=== PATIENT | female | born 1995 | race American Indian/Alaskan Native ===

== ENCOUNTER 2020-07-30 20:21 | Outpatient (CLI) | payer OTHER ==
[2020-07-30 22:04] VITALS: BP 122/76
--- NOTE | 2020-07-30 22:41 | Ultrasound Report ---
ULTRASOUND OBSTETRIC LIMITED INDICATION / CLINICAL INFORMATION: determine cervical dilation with cerclage. Clinical Gestational Age (GA): 24.5 weeks.days COMPARISON: None available. FINDINGS: HEART RATE (beats per minute): 152 AMNIOTIC FLUID: Subjectively normal. PRESENTATION: Breech. ADDITIONAL FINDINGS: Cervical length is 3.1 cm. There is slight funneling measuring approximately 5 m m in transverse diameter. The cervix itself appears closed. IMPRESSION: 1. Breech presentation with slight funneling of the cervix, as above. Signer Name: Deepak Palmer MD Signed: 07/30/2020 10:36 PM Workstation Name: [id number]
== END 2020-07-30 22:12 | disposition home or self-care (01) ==
LOC: TRG 20:21 → APU 20:21 → TRG 22:12
DX: Z34.92 Encounter for supervision of normal pregnancy, unspecified, second trimester (principal); Z3A.24 24 weeks gestation of pregnancy
CPT/HCPCS: 59025; 76815

== ENCOUNTER 2020-10-30 17:25 | Inpatient (IN) | payer OTHER ==
[2020-10-30] MEDS ORDERED: LACTATED RINGERS 1,000 ML IV ONE (19:07)
[2020-10-30] MEDS ORDERED: NALOXONE 2 MG/2 ML INJ IV PRN (19:31)
[2020-10-30] MEDS ORDERED: ePHEDrine SULFATE 50 MG/1 ML INJ IV PRN (19:31)
[2020-10-30 19:38] LABS: Hematocrit 41.6 % (30.3-42.9); Hemoglobin 14.2 gm/dl (10.1-14.3); Mean Corpuscular HGB Conc 34 % (30-34); Mean Corpuscular Volume 88 fl (79-97); Platelet Count 240 K/mm3 (140-440); Red Blood Count 4.73 M/mm3 (3.65-5.03); Red Cell Distribution Width 14.5 % (13.2-15.2)
--- NOTE | 2020-10-30 19:50 | History and Physical Report ---
History of Present Illness Date of examination: 10/30/20 Date of admission: 10/30/20 18:07 Chief complaint: labor at 38 weeks. History of present illness: Patient is a 25-year-old single black female 2 para 0-1-0-0 1 who has a history of delivery and 2020 baby weighed 1 pound 7 ounces born by events alive. 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 The rest of her genetic screening is negative. Glucose screen was abnormal. Gonorrhea and Chlamydia tests were negative. Patient had her cerclage a few days ago local probiotic at [facility]. She presented being 6 to 7 cm dilated and active labor tonight. By her dates she is 38 weeks and the cervix is 67 cm dilated. An expectant vaginal delivery. Past History Past Medical History: other (factor 9 def,,) Past Surgical History: other (cerclage) Family/Genetic History: none Social history: single - Obstetrical History Expected Date of Delivery: 11/14/20 Actual Gestation: 37 Week(s) 6 Day(s) : 2 Para: 1 Hx # Term Pregnancies: 0 Number of Pregnancies: 1 Spontaneous Abortions: 0 Induced : 0 Number of Living Children: 1 Medications and Allergies Allergies Allergy/AdvReac Type Severity Reaction Status Date / Time No Known Allergies Allergy Verified 10/30/20 18:07 Home Medications Medication Instructions Recorded Confirmed Last Taken Type Pnv,Calcium 72/Iron/Folic Acid 1 tab PO DAILY 07/30/20 07/30/20 07/30/20 History [Preplus Ca-Fe 27 mg-FA 1 mg Tb] 0700 Active Meds: Active Medications Ephedrine Sulfate (Ephedrine Sulfate 50 Mg/1 Ml Inj) 10 mg IV Q2M PRN PRN Reason: Hypotension Lactated Ringer's (Lactated Ringers) 1,000 mls @ 999 mls/hr IV BOLUS ONE Stop: 10/30/20 20:07 Last Admin: 10/30/20 18:39 Dose: 999 mls/hr Documented by: Fentanyl/Bupivacaine/Sodium Chlor (Fentanyl-Bupiv 2 Mcg/Ml-0.125%) 200 mcg in 100 mls @ 12 mls/hr EPIDURAL TITR HERNIETTA; Protocol Naloxone HCl (Naloxone 2 Mg/2 Ml Inj) 0.2 mg IV Q5M PRN PRN Reason: Respiratory sedation Review of Systems All systems: negative - Vital Signs Vital signs: Vital Signs Temp 98.2 F 10/30/20 18:11 Temp Pulse Resp BP Pulse Ox 98.2 F 101 H 122/72 100 10/30/20 18:11 10/30/20 19:42 10/30/20 19:31 10/30/20 19:42 - Physical Exam Breasts: Positive: normal Cardiovascular: Regular rate, Normal S1, Normal S2 Abdomen: Positive: normal appearance, soft, normal bowel sounds. Negative: distention, tenderness Vulva: both: normal Vagina: Positive: normal moisture. Negative: discharge Cervix: Positive: other (6-7 cms). Negative: lesion, discharge Uterus: Positive: normal size, enlarged (38 wks size), normal contour Adnexa: both: normal Anus/Rectum: Positive: normal perianal skin, heme negative. Negative: rectal mass, hemorrhoids Extremities: Deep Tendon Reflex Grade: Normal +2 - Obstetrical FHR: category 1 Uterine Contraction Monitor Mode: External Cervical Dilatation: 7 Cervical Effacement Percentage: 70 station: -3 Uterine Contraction Frequency (min): q5min Uterine Contraction Pattern: Regular Results Result Diagrams: 10/30/20 18:40 Abnormal lab results 10/30/20 Range/Units 18:40 WBC 15.9 H (4.5-11.0) K/mm3 All other labs normal. Assessment and Plan expectant vag delivery at 38 weeks.
[2020-10-30] MEDS ORDERED: fentaNYL-BUPIV 2 MCG/ML-0.125% 200 MCG/100 ML BAG EPIDURAL SCH (20:00)
[2020-10-30] MEDS ORDERED: LIDOCAINE (2%) 20 MG/1 ML VIAL 20 ML MDV INFILTRATI ONE (20:06)
[2020-10-30] MEDS ORDERED: MINERAL OIL 30 ML ORAL LIQD ONE (20:06)
[2020-10-30] MEDS ORDERED: fentaNYL 100 MCG/2 ML INJ IV ONE (20:08)
[2020-10-30] MEDS ORDERED: BICITRA ORAL LIQD 30ML PO ONE (22:38)
--- NOTE | 2020-10-30 22:40 | Anesthesia Day of Surgery ---
Anesthesia Day of Surgery - Day of Surgery Patient Examined: Yes Patient H&P Reviewed: Yes Patient is NPO: Yes Beta Blockers: No Cardiac Clearance: No Pulmonary Clearance: No Zeeshan's Test: N/A
[2020-10-30] MEDS ORDERED: METOCLOPRAMIDE 10 MG/2 ML INJ ONE (22:42)
[2020-10-30] MEDS ORDERED: FAMOTIDINE 20 MG/2 ML INJ IV ONE (22:42)
[2020-10-30] MEDS ORDERED: ceFAZolin/Water 2 GM/20 ML 2 GM/20 ML SYRINGE IV ONE (22:43)
[2020-10-30] MEDS ORDERED: OXYTOCIN DRIP 30,000 MILLIUNITS/500 ML BAG IV ONE (22:43)
[2020-10-30] MEDS ORDERED: NALOXONE 0.4 MG/1 ML INJ IV PRN (22:45)
[2020-10-30] MEDS ORDERED: HYDROmorphone 1 MG/1 ML INJ IV PRN ×2 (22:45)
[2020-10-30] MEDS ORDERED: ONDANSETRON 4 MG/2 ML INJ IV PRN (22:45)
--- NOTE | 2020-10-30 22:45 | Anesthesia Consultation ---
Anesthesia Consult and Med Hx Date of service: 10/30/20 - Airway Anesthetic Teeth Evaluation: Poor ROM Head & Neck: Adequate Mental/Hyoid Distance: Adequate Mallampati Class: Class II Intubation Access Assessment: Probably Good - Pulmonary Exam CTA: Yes - Cardiac Exam Cardiac Exam: RRR - Pre-Operative Health Status ASA Pre-Surgery Classification: ASA3 Proposed Anesthetic Plan: General - Pre-Anesthesia Comment Pre-Anesthesia Comments: cerclage, No anesthesia complications - Pulmonary Hx Smoking: No Hx Asthma: No Hx Respiratory Symptoms: No SOB: No COPD: No Hx Pneumonia: No Hx Sleep Apnea: No - Cardiovascular System Hx Hypertension: No Hx Coronary Artery Disease: No Hx Heart Attack/AMI: No Hx Angina: No Hx Percutaneous Transluminal Coronary Angioplasty (PTCA): No Hx Cardia Arrhythmia: No Hx Pacemaker: No Hx Internal Defibrillator: No Hx Valvular Heart Disease: No Hx Heart Murmur: No Hx Peripheral Vascular Disease: No - Central Nervous System Hx Neuromuscular Disorder: No Hx Seizures: No CVA: No Hx Back Pain: Yes Hx Psychiatric Problems: No - Gastrointestinal Hx Ulcer: No Hx Gastroesophageal Reflux Disease: Yes - Endocrine Hx Renal Disease: No Hx End Stage Renal Disease: No Hx Cirrhosis: No Hx Liver Disease: No Hx Insulin Dependent Diabetes: No Hx Non-Insulin Dependent Diabetes: No Hx Thyroid Disease: Yes (evaluation will be done after delivery) Hx Hypothyroidism: No Hx Hyperthyroidism: No - Hematic Hx Anemia: No Hx Sickle Cell Disease: No - Other Systems Hx Alcohol Use: No Hx Substance Use: No Hx Cancer: No Hx Obesity: Yes - Additional Comments Anesthesia Medical History Comments: Facter XI deficiency
[2020-10-30] MEDS ORDERED: ceFAZolin/STERILE WATER 2 GM/20 ML SYRINGE IV NR (23:00)
[2020-10-30] MEDS ORDERED: FAMOTIDINE 20 MG/2 ML INJ IV NR (23:00)
[2020-10-30] MEDS ORDERED: METOCLOPRAMIDE 10 MG/2 ML INJ IV NR (23:00)
[2020-10-30] MEDS ORDERED: KETOROLAC 30 MG/1 ML INJ ONE (23:02)
[2020-10-30] MEDS ORDERED: SUCCINYLCHOLINE CHLORIDE 200 MG/10 ML INJ MDV ONE (23:03)
[2020-10-30] MEDS ORDERED: dexAMETHasone 20 MG/5 ML VIAL ONE (23:03)
[2020-10-30] MEDS ORDERED: propofoL 200 MG/20 ML VIAL IV ONE (23:03)
[2020-10-30] MEDS ORDERED: ONDANSETRON 4 MG/2 ML INJ ONE (23:03)
[2020-10-30] MEDS ORDERED: SODIUM CHLORIDE 0.9% 500 ML 500 ML IV ONE (23:25)
[2020-10-30] MEDS ORDERED: LIDOCAINE MPF (2%) 20 MG/1 ML VIAL 5 ML ONE ×2 (23:34)
[2020-10-30] MEDS ORDERED: BUPIVACAINE/PF (0.25%) 2.5 MG/ML 30 ML VIAL INFILTRATI ONE (23:41)
[2020-10-30] MEDS ORDERED: METHYLERGONOVINE MALEATE 0.2 MG/ML VIAL IM ONE (23:43)
[2020-10-30] MEDS ORDERED: HYDROmorphone 1 MG/1 ML INJ ONE ×2 (23:45)
[2020-10-30] MEDS ORDERED: MIDAZOLAM 2 MG/2 ML INJ ONE (23:59)
[2020-10-31] MEDS ORDERED: SODIUM CHLORIDE 0.9% 500 ML 500 ML ONE (00:15)
[2020-10-31] MEDS ORDERED: NALOXONE 0.4 MG/1 ML INJ IV PRN (00:27)
[2020-10-31] MEDS ORDERED: ONDANSETRON 4 MG/2 ML INJ IV PRN (00:27)
[2020-10-31] MEDS ORDERED: WITCH HAZEL/ GLYCERIN PAD TP PRN (00:27)
[2020-10-31] MEDS ORDERED: LANOLIN/ZINC/DIMETHICONE (LANSINOH) 7 GM TP PRN (00:27)
[2020-10-31] MEDS ORDERED: IBUPROFEN 600 MG TAB PO PRN (00:27)
--- NOTE | 2020-10-31 00:38 | Procedure Note ---
Date of procedure: 10/31/20 Pre-op diagnosis: 39 weeks iup, factor 9 deficency, severe late decelerations,meconium, Post-op diagnosis: same Procedure: Primary low transverse section. Surgeon . Homicide Detective none. Anesthesia General with intubation. Drains Torres Specimen placenta and cord. Estimated blood loss 1500 cc. Complications none preoperative diagnosis 39-week intrauterine . Progress factor IX deficiency is delivery of a cerclage. Postop diagnosis same and meconium stained amniotic fluid. Procedure was a low transverse section. Anesthesia General with intubation. Baby weight 5 pounds 7 ounces Apgars 8 and 9. Procedure patient was taken to the operatory placed in supine position she was given a indwelling Torres catheter. Subsequently she was prepped and draped in usual manner and given a general anesthetic with intubation. We made a Pfannenstiel incision in the lower abdomen with a scalpel and entered the abdominal cavity anatomically. Subcutaneous bleeders were bovied closed with hemostat. The vesicouterine peritoneum was opened transversely with Metzenbaums. Bladder blade was placed in the lower pole of the incision and a low transverse incision was made in the lower uterine segment with the scalpel and fetus in occiput anterior presentation was then delivered without incident oropharynx was suctioned the patient had nuchal cord. The oropharynx and nasopharynx was suctioned. The cord was doubly clamped and cut and passed off the table to the baby's pathology table to the nurses in attendance. The placenta was removed after we obtain placental blood for the nursery. The uterus was removed from abdominal cavity and was cleaned with of debris membranes and tissue. The uterine incision was repaired in 2 layers first layer was in a deep myometrium using running 0 chromic. The second layer was superficial layer of the myometrium was closed with running locking #0 chromic suture. The uterine incision was hemostatic vesicouterine peritoneum was repaired running 2-0 chromic on a small needle. The bleeding was controlled in the abdomen with clean the gutters suction the uterus brought back to abdominal cavity tubes and ovaries appeared normal. All instruments removed from abdominal cavity instrument count needle lap sponge count was correct. Anterior abdominal peritoneum was repaired running 2-0 chromic fascia repaired running locking with 0 Vicryl skin was repaired running subcuticular 4-0 Vicryl and drape with Dermabond the patient tolerated procedure well she was then returned to recovery room in stable condition end of operative note on this patient. Anesthesia: GETA Surgeon: MIKE TAYLOR Estimated blood loss: other (1500) IV fluids: 1,000 Urine output: 300 Specimen disposition: to lab Condition: stable Disposition: PACU
[2020-10-31] MEDS ORDERED: OXYTOCIN DRIP 30 UNITS/500 ML BAG IV SCH (01:00)
[2020-10-31 01:41] LABS: Hematocrit 36.9 % (30.3-42.9); Hemoglobin 12.4 gm/dl (10.1-14.3)
[2020-10-31] MEDS ORDERED: D5W/LACTATED RINGERS 1,000 ML IV SCH (04:33)
[2020-10-31] MEDS: MORPHINE 4 MG/1 ML INJ IV PRN ×2 (04:38→09:47)
[2020-10-31] MEDS: HYDROcodone/ACETAMINOPHEN 5-325 MG TAB PO PRN ×2 (12:33→23:04)
[2020-11-01] MEDS: HYDROcodone/ACETAMINOPHEN 5-325 MG TAB PO PRN ×4 (05:46→23:48)
--- NOTE | 2020-11-01 10:08 | Progress Note ---
Assessment and Plan A: S/P LTCS POD#2 Tachycardia No gas yet P: Continue routine pp care UA c&s Encourage ambulation D/C home tomm if stable Subjective - Subjective Date of service: 11/01/20 Principal diagnosis: S/P LTCS Patient reports: appetite normal, voiding normally, pain well controlled, ambulating normally [place]: doing well, bottle feeding Objective - Vital Signs Latest vital signs: Vital Signs Temp Pulse Resp BP BP Pulse Ox 11/01/20 09:17 98.1 F 83 20 110/57 11/01/20 00:00 98.6 F 77 16 112/68 10/31/20 20:31 98.0 F 118 H 18 124/71 97 10/31/20 16:05 98.2 F 105 H 18 110/56 10/31/20 12:35 98.2 F 101 H 18 125/65 Intake and Output 10/31/20 11/01/20 11/01/20 22:59 06:59 14:59 Intake Total 320 600 360 Output Total 600 Balance -280 600 360 Intake: Oral 320 360 Intake, Free Water 600 Output: Urine 600 Void 600 Other: Total, Intake Amount 320 360 Total, Output Amount 600 # Voids Void 1 1 1 - Exam Breasts: Present: normal Abdomen: Present: normal appearance, soft, normal bowel sounds Vulva: both: normal Uterus: Present: normal, firm, fundal height below umbilicus Extremities: Present: normal Incision: Present: normal, dry, intact, dressed - Labs Labs: Abnormal lab results 10/30/20 Range/Units 18:40 Crossmatch See Detail
[2020-11-01 11:44] LABS: Bilirubin,Urine NEG (Negative); Blood,Urine LG (Negative); Color,Urine Red (Yellow); Mucus,Urine FEW /HPF; Urobilinogen,Urine < 2.0 mg/dL (<2.0)
[2020-11-01 11:47] LABS: RBC,Urine > 182.0 /HPF (0.0-6.0); WBC,Urine > 182.0 /HPF (0.0-6.0)
--- NOTE | 2020-11-01 14:31 | Post Anesthesia Evaluation ---
- Post Anesthesia Evaluation Patient Participated: Yes Airway Patent: Yes Stable Respiratory Function: Yes Nausea/Vomiting: No Temp > 96.8F: Yes Pain Manageable: Yes Adequeate Hydration: Yes Anesthesia Complications: No Block Receding Appropriately: Not Applicable Patient on Ventilator: No
[2020-11-01] MEDS: MAGNESIUM HYDROXIDE (MOM) ORAL LIQD UDC PO PRN (18:41)
[2020-11-01] MEDS: NITROFURANTOIN MONOHYD/M-CRYST 100 MG CAP PO SCH (21:45)
[2020-11-02] MEDS: HYDROcodone/ACETAMINOPHEN 5-325 MG TAB PO PRN ×2 (05:44→12:26)
--- NOTE | 2020-11-02 09:00 | Event Note ---
Date: 11/02/20 Pt is pos for a uti. Macrobid was ordered and to be continued at home x 7 days. Awaiting c&s.
[2020-11-02] MEDS: MAGNESIUM HYDROXIDE (MOM) ORAL LIQD UDC PO PRN (09:40)
[2020-11-02] MEDS: NITROFURANTOIN MONOHYD/M-CRYST 100 MG CAP PO SCH (09:40)
[2020-11-02] MEDS ORDERED: SIMETHICONE 80 MG CHEW TAB PO PRN (14:00)
--- NOTE | 2020-11-02 14:08 | Progress Note ---
Assessment and Plan A: /postop day 2 S/P primary LTCS. Constipation. UTI, on Macrobid and urine C&S pending. Factor IX deficiency. P: Mylicon and Colace ordered. Patient to drink warm liquids. Continue Macrobid; await urine culture results. Encouraged patient to ambulate. Repeat CBC and CMP ordered. Subjective - Subjective Date of service: 11/02/20 Principal diagnosis: day 2 S/P primary LTCS Interval history: Patient states she has not yet passed gas but feels she needs to. Has been burping. States she was constipated prior to her coming to the hospital. Taking Macrobid for a UTI. Denies fever, chills, malaise, abdominal pain, nausea or vomiting. Started patient on Mylicon and Colace. Encouraged patient to drink warm liquids and then sit on toilet for a while. Patient reports: appetite normal, voiding normally, pain well controlled, ambulating normally, no dizzy ambulation, no flatus, no bowel movement, no nauseated : doing well Objective - Vital Signs Latest vital signs: Vital Signs Temp Pulse Resp BP BP Pulse Ox 11/02/20 13:26 16 11/02/20 12:26 16 11/02/20 08:12 97.7 F 101 H 20 122/76 97 11/02/20 01:48 97.8 F 106 H 18 133/80 95 11/01/20 17:43 16 11/01/20 16:00 98.8 F 73 20 116/64 Intake and Output 11/01/20 11/02/20 11/02/20 23:59 07:59 15:59 Intake Total 800 240 720 Balance 800 240 720 Intake: Oral 800 360 Intake, Free Water 240 360 Other: Total, Intake Amount 120 240 # Voids Void 1 1 1 - Exam Cardiovascular: Present: Regular rate Lungs: Present: Clear to auscultation Abdomen: Present: normal appearance, soft, normal bowel sounds. Absent: distention, tenderness, guarding, rigidity Uterus: Present: normal, firm, fundal height below umbilicus. Absent: bogginess, tenderness Extremities: Absent: tenderness, edema Incision: Present: normal, dry, intact
[2020-11-02] MEDS: DOCUSATE SODIUM 100 MG CAP PO SCH ×2 (14:14→22:00)
[2020-11-02 16:48] LABS: Basophils % (Auto) 0.3 % (0.0-1.8); Eosinophils # (Auto) 0.3 K/mm3 (0.0-0.4); Eosinophils % (Auto) 2.4 % (0.0-4.3); Hematocrit 28.7 % (30.3-42.9); Hemoglobin 9.9 gm/dl (10.1-14.3); Lymphocytes % (Auto) 14.5 % (13.4-35.0); Mean Corpuscular HGB Conc 35 % (30-34); Mean Corpuscular Volume 87 fl (79-97); Monocytes # (Auto) 0.9 K/mm3 (0.0-0.8); Monocytes % (Auto) 6.4 % (0.0-7.3); Platelet Count 272 K/mm3 (140-440); Red Blood Count 3.29 M/mm3 (3.65-5.03); Red Cell Distribution Width 14.3 % (13.2-15.2)
[2020-11-02 17:08] LABS: Alanine Aminotransferase 11 units/L (7-56); Albumin 3.1 g/dL (3.9-5); Blood Urea Nitrogen 5 mg/dL (7-17); Calcium 8.7 mg/dL (8.4-10.2); Hemolysis Index 2
[2020-11-02 17:12] LABS: BUN/Creatinine Ratio 8
[2020-11-03] MEDS: HYDROcodone/ACETAMINOPHEN 5-325 MG TAB PO PRN ×2 (01:00→09:47)
[2020-11-03] MEDS: NITROFURANTOIN MONOHYD/M-CRYST 100 MG CAP PO SCH ×2 (01:00→09:48)
[2020-11-03] MEDS: DOCUSATE SODIUM 100 MG CAP PO SCH (09:47)
--- NOTE | 2020-11-03 13:07 | Discharge Summary ---
Providers - Providers Date of Admission: 10/30/20 18:07 Date of discharge: 11/03/20 Attending physician: MIKE TAYLOR MD Primary care physician: MIKE TAYLOR MD Hospitalization Reason for admission: section Procedure: section, primary low transverse Episiotomy: none Incision: normal complications: UTI, other (constipation) Discharge diagnosis: IUP at term delivered Hospital course: Patient with a history of delivery admitted for active labor at term however underwent a primary for nonreassuring heart tones. The goals and desires to be discharged. Hospital course complicated by mild UTI and constipation. Patient with passage of flatus. Patient discharged on Macrobid for UTI. Condition at discharge: Stable Disposition: DC- TO HOME OR SELFCARE Plan - Discharge Medications Prescriptions: Docusate Sodium [Colace CAP] 100 mg PO BID #60 capsule Nitrofurantoin [place]/M-Cryst [Macrobid CAP] 100 mg PO Q12HR #12 capsule Ibuprofen [Motrin 600 MG tab] 600 mg PO Q6H PRN #30 tablet PRN Reason: Pain, Mild (1-3) HYDROcodone/APAP 5-325 [[place] 5-325 mg TAB] 1 each PO Q6H PRN #30 tablet PRN Reason: Pain, Moderate (4-6) - Provider Discharge Summary Activity: no sex for 6 weeks, no heavy lifting 4 weeks Diet: routine Instructions: routine Additional instructions: [] Smoking cessation referral if applicable(refer to patient education folder for contact #) [] Refer to [facility]'s [facility] Booklet Call your doctor immediately for: * Fever > 100.5 * Heavy vaginal bleeding ( >1 pad per hour) * Severe persistent headache * Shortness of breath * Reddened, hot, painful area to leg or breast * Drainage or odor from incision. * Keep incision clean and dry at all times and follow doctor's instructions regarding bathing/showering - Follow up plan Follow up: MIKE TAYLOR MD [Primary Care Provider] - 7 Days Forms: [facility] Discharge Summary
[2020-11-03 14:33] VITALS: BP 124/72
== END 2020-11-03 14:20 | disposition home or self-care (01) | DRG 765 ==
LOC: TRG 17:25 → APU 17:31 → LD 18:07 → OBSVTOIN 18:07 → TRG 18:07 → OB 10-31 02:44
PROC: 10D00Z1 Extraction of Products of Conception, Low, Open Approach (ICD-10-PCS; principal; 2020-10-31)
DX: O76 Abnormality in fetal heart rate and rhythm complicating labor and delivery (principal); D67 Hereditary factor IX deficiency; O75.3 Other infection during labor; Z3A.39 39 weeks gestation of pregnancy; Z37.0 Single live birth; O99.12 Other diseases of the blood and blood-forming organs and certain disorders involving the immune mechanism complicating childbirth; O77.0 Labor and delivery complicated by meconium in amniotic fluid
CPT/HCPCS: 36415; 80053; 81001; 85014; 85018; 85025; 85027; 86592; 86850; 86900; 86901; 86920; 87086; 88307; 99211; G0378; G0463; J0330; J1100; J1170; J1885; J2250; J2270; J2405; J2704; J3010; J3490; J7040; J7120; U0003